=== PATIENT | male | born 1975 | race Caucasian/White ===

== ENCOUNTER 2018-07-12 22:24 | Emergency (ER) | payer SELFPAY ==
[2018-07-12] MEDS ORDERED: fentaNYL 100 MCG/2 ML SDV IVPUSH PRN (22:43)
[2018-07-12] MEDS ORDERED: Diphtheria,Pertussis(Acell),Tetanus Vaccine 0.5 ML SDV IM ONE (22:44)
[2018-07-12] MEDS ORDERED: Morphine 2 MG/ML Syringe IVPUSH PRN (22:44)
[2018-07-12] MEDS ORDERED: Iopamidol 755 Mg/ML 100 ML Bottle IV ONE (22:52)
[2018-07-12] MEDS ORDERED: Lactated Ringers 1,000 ML IV SCH (23:00)
[2018-07-13] MEDS ORDERED: fentaNYL 100 MCG/2 ML SDV IVPUSH ONE (00:42)
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
== END 2018-07-13 00:55 | disposition critical access hospital (66) ==
LOC: FB.ED 22:24
DX: S06.0X0A Concussion without loss of consciousness, initial encounter (principal); S27.321A Contusion of lung, unilateral, initial encounter; S42.111A Displaced fracture of body of scapula, right shoulder, initial encounter for closed fracture; S42.021A Displaced fracture of shaft of right clavicle, initial encounter for closed fracture; S22.070A Wedge compression fracture of T9-T10 vertebra, initial encounter for closed fracture; S22.41XA Multiple fractures of ribs, right side, initial encounter for closed fracture; S80.212A Abrasion, left knee, initial encounter; S00.81XA Abrasion of other part of head, initial encounter; S49.91XA Unspecified injury of right shoulder and upper arm, initial encounter; F10.129 Alcohol abuse with intoxication, unspecified; J45.909 Unspecified asthma, uncomplicated; F17.210 Nicotine dependence, cigarettes, uncomplicated; Z88.1 Allergy status to other antibiotic agents; V19.88XA Pedal cyclist (driver) (passenger) injured in other specified transport accidents, initial encounter; Z23 Encounter for immunization
CPT/HCPCS: 36415; 70450; 71260; 72125; 74177; 80053; 84484; 85025; 90471; 90472; 90715; 93005; 96361; 96374; 96375; 96376; 99284; 99285; G0480; J2270; J3010; J7120; Q9967